=== PATIENT | female | born 1980 | race Caucasian/White ===

== ENCOUNTER → 2016-10-02 | Outpatient (CLI) | payer OTHER | LOC: BMCIMAGING 16:47 | PROVIDERS: ATTEND Internal Medicine | DX: R07.9 Chest pain, unspecified (principal); M41.84 Other forms of scoliosis, thoracic region ==

== ENCOUNTER → 2016-10-06 | Outpatient (CLI) | payer OTHER | LOC: BMCIMAGING 15:03 | PROVIDERS: ATTEND Internal Medicine | DX: E04.1 Nontoxic single thyroid nodule (principal); R59.0 Localized enlarged lymph nodes | CPT/HCPCS: 76536-PO ==

== ENCOUNTER → 2016-11-07 | Outpatient (CLI) | payer OTHER ==
[~2016-11-07] MED LIST: GADOBUTROL 10 ML VIAL IVP ONE
== END ==
LOC: FIMAGING 14:14
PROVIDERS: ATTEND Physical Medicine & Rehabilitation
DX: M94.0 Chondrocostal junction syndrome [Tietze] (principal); R91.1 Solitary pulmonary nodule
CPT/HCPCS: A9585

== ENCOUNTER → 2016-12-24 | Outpatient (CLI) | payer OTHER ==
[~2016-12-24] MED LIST changes: -GADOBUTROL 10 ML VIAL IVP ONE; +IOPAMIDOL (ISOVUE-300) 100 ML BTL ONE
== END ==
LOC: FIMAGING 12:50
PROVIDERS: ATTEND Physician Assistant
DX: R91.1 Solitary pulmonary nodule (principal); K76.9 Liver disease, unspecified; N63 Unspecified lump in breast
CPT/HCPCS: Q9967